=== PATIENT | female | born 1935 | race Caucasian/White ===

== ENCOUNTER 2021-02-21 10:33 | Outpatient (CLI) | payer MEDICARE, BC, SELFPAY ==
--- NOTE | 2021-02-21 10:41 | CT_ITS ---
WS: [id number] CT ABDOMEN WITHOUT CONTRAST HISTORY: SERUM LIPASE ELEVATED Contiguous single phase 5 mm axial imaging performed to the abdomen. Oral contrast has not been provi ded. Coronal and sagittal reformats are submitted. All CT scans at [facility] use at least on e of these dose optimization techniques: automated exposure control; mA and/or kV adjustment per anthony ent size (includes targeted exams where dose is matched to clinical indication); or iterative reconst ruction. CONTRAST: None DLP: 647.97 mGycm COMPARISON: None available. Lower thorax: Dependent changes at the lung bases bilaterally. Heart size is moderately enlarged. No effusion. Small hiatal hernia. Liver: Normal. No intrahepatic dilatation. Gallbladder: Mixed density within the gallbladder. Suspect stones, mass or sludge. No bile duct dilat ation. Pancreas: Normal. Spleen: Normal. Adrenals: Normal. Right kidney: Normal. Left kidney: Mild atrophy of the LEFT kidney. Mild cortical thinning with no obstruction. Aorta: Mild atherosclerosis. No aneurysm. GI tract: As visualized within the abdomen no obstruction or acute inflammatory process. No wall thic kening. No adenopathy or free fluid. Abdominal wall: Diffuse soft tissue anasarca. No hernia. Visualized osseous structures: Increase in the lumbar lordosis. Moderate spondylitic changes and corbin te LEFT curvature of the lumbar spine with asymmetric disc space narrowing at L4-5. CT/CT abdomen wo con [id number] IMPRESSION: 1. Abnormal density within the gallbladder. Suspect stones, mass or sludge. Re commend follow-up RIGHT upper quadrant ultrasound to further evaluate the gallb ladder and to evaluate for additional pathology. 2. Mild soft tissue anasarca. 3. Mild atrophy LEFT kidney.
== END 2021-02-21 10:34 | disposition home or self-care (01) ==
PROVIDERS: Visit Provider Nurse Practitioner Family
DX: R74.8 Abnormal levels of other serum enzymes (principal); N26.1 Atrophy of kidney (terminal); R60.1 Generalized edema
CPT/HCPCS: 74150

== ENCOUNTER 2021-03-25 08:11 | Outpatient (CLI) | payer MEDICARE, BC, SELFPAY ==
--- NOTE | 2021-03-25 | US_ITS ---
WS: [id number] Complete ABDOMINAL ULTRASOUND HISTORY: LEFT LOWER QUAD PAIN COMPARISON: None available. Liver: 13.0 cm in length. Liver is normal size and echogenicity with no mass or intrahepatic dilatati on. Gallbladder: Normally distended gallbladder. Numerous mobile stones with shadowing within the gallbla dder lumen. No pericholecystic fluid or gallbladder wall thickening. Gallbladder wall thickness: 0.2 cm. Pancreas: Normal size and echogenicity. CBD: 0.7 cm. Right kidney: 9.0 cm x 3.5 cm x 4.6 cm. No mass, cortical thickening or hydronephrosis. Left kidney: 9.7 cm x 3.7 cm x 4.0 cm. No mass, cortical thickening or hydronephrosis. Spleen: Normal size and echogenicity. Abdominal aorta and IVC are within normal limits. No ascites. No abnormality in the LEFT lower quadrant and area of pain. US/US abdomen complete* [id number] IMPRESSION: 1. Cholelithiasis without acute cholecystitis. 2. The remaining ultrasound is negative.
== END 2021-03-25 08:12 | disposition home or self-care (01) ==
PROVIDERS: PCP Nurse Practitioner Family; Visit Provider Nurse Practitioner Family
DX: R10.32 Left lower quadrant pain (principal); K80.20 Calculus of gallbladder without cholecystitis without obstruction
CPT/HCPCS: 76700

== ENCOUNTER 2021-04-05 14:04 | Outpatient (CLI) | payer MEDICARE, BC, SELFPAY ==
--- NOTE | 2021-04-05 14:10 | USCV_ITS ---
Irina Frankel Age: 85 Gender: F : 1935 Exam Date: 04/05/2021 14:29 Ordering Phys: Jacinta Tinoco NP Technologist: Arlene Basilio Exam Location: [facility] [place] Indication: CARDIOMEGALY BP: 126 / 76 HR: 72 Rhythm: Sinus Technical Quality: Technically difficult study MEASUREMENTS (Male / Female) Normal Values 2D ECHO LV Diastolic Diameter PLAX 3.6 cm 4.2 - 5.9 / 3.9 - 5.3 cm LV Systolic Diameter PLAX 2.5 cm IVS Diastolic Thickness 1.3 cm 0.6 - 1.0 / 0.6 - 0.9 cm IVS Systolic Thickness 1.8 cm LVPW Diastolic Thickness 1.3 cm 0.6 - 1.0 / 0.6 - 0.9 cm LVPW Systolic Thickness 2.0 cm LVOT Diameter 2.0 cm LV Ejection Fraction 2D Teich 58.3 % LV Ejection Fraction MOD 2C 59.3 % LV Ejection Fraction 2C AL 59.9 % LA Diameter 2.9 cm LA Width 3.0 cm LA Height 4.6 cm RA Width 4.0 cm RA Height 3.9 cm Aorta at Sinotubular Diameter 1.9 cm M-MODE Aortic Annulus Diameter 2.9 cm LA Ao Ratio MM 1.0 MV E Point Septal Separation 0.6 cm DOPPLER AV Peak Velocity 211.0 cm/s LVOT Peak Velocity 111.3 cm/s AV Area Cont Eq vti 1.8 cm squared AV Area Cont Eq pk 1.7 cm squared MV Peak Velocity 136.0 cm/s MV Area PHT 3.1 cm squared Mitral E to A Ratio 0.9 MV E' Velocity 66.0 cm/s Mitral E to MV E' Ratio 11.3 Mitral E to LV E' Lateral Ratio 13.1 Mitral E to LV E' Septal Ratio 10.0 TR Peak Velocity 212.9 cm/s TR Peak Gradient 18.1 mmHg TR Mean Velocity 150.8 cm/s TR Mean Gradient 9.9 mmHg TR Velocity Time Integral 52.8 cm TV Peak E Velocity 56.0 cm/s Right Atrial Pressure 3.0 mmHg Pulmonary Artery Systolic Pressu 21.1 mmHg PV Peak Velocity 93.0 cm/s RV Acceleration Time 0.1 s RV Ejection Time 0.3 s RV AcT/ET 0.2 FINDINGS Left Ventricle Normal left ventricular cavity size. Normal left ventricular systolic function. No regional wall motion abnormalities. Left ventricular ejection fraction is estimated at 60 %. Grade I/IV diastolic dysfunction (abnormal relaxation filling pattern), normal to mildly elevated filling pressures. Right Ventricle The right ventricle is normal in size and function. Right Atrium The right atrium is normal in size. Left Atrium The left atrium is normal in size. Mitral Valve Moderately thickened mitral valve. Moderate mitral annular calcification. No mitral valve stenosis. Mild mitral valve regurgitation. Aortic Valve Severe aortic valve calcification. Moderate aortic valve stenosis, mean gradient 9.6 mmHg, CHE 1.8 cm squared. No aortic valve regurgitation. Tricuspid Valve Structurally normal tricuspid valve without significant stenosis or regurgitation. Pulmonary artery systolic pressure is normal. Pulmonic Valve Structurally normal pulmonic valve without significant stenosis. There is no pulmonic regurgitation. Pericardium Normal pericardium without effusion. Aorta Normal ascending aorta dimension. CONCLUSIONS 1-Normal left ventricular cavity size. Normal left ventricular systolic function. No regional wall motion abnormalities. Left ventricular ejection fraction is estimated at 60 %. Grade I/IV diastolic dysfunction (abnormal relaxation filling pattern), normal to mildly elevated filling pressures. 2-Severe aortic valve calcification. Moderate aortic valve stenosis, mean gradient 9.6 mmHg, CHE 1.8 cm squared. No aortic valve regurgitation. 3-Moderately thickened mitral valve. Moderate mitral annular calcification. No mitral valve stenosis. Mild mitral valve regurgitation. 4-There is no pericardial effusion. 5-Pulmonary artery systolic pressure is within normal limits. 6-Right atrial pressure is around 5 mm of mercury. 7-There are no prior echocardiogram studies to compare. Holden Casiano MD (Electronically Signed) Final Date: 05 April 2021 21:02 S
== END 2021-04-05 14:05 | disposition home or self-care (01) ==
LOC: RAD 14:08
PROVIDERS: PCP Nurse Practitioner Family; Visit Provider Nurse Practitioner Family
DX: I70.0 Atherosclerosis of aorta (principal); I08.0 Rheumatic disorders of both mitral and aortic valves
CPT/HCPCS: 93306

== ENCOUNTER 2021-05-29 13:38 | Outpatient (CLI) | payer MEDICARE, BC, SELFPAY ==
--- NOTE | 2021-05-29 13:46 | MM_ITS ---
WS: [id number] BILATERAL DIGITAL SCREENING MAMMOGRAPHY WITH CAD CLINICAL INFORMATION: SCREENING HISTORY: Screening mammogram. No current complaints. COMPARISON: June 07, 2020 TECHNIQUE: Bilateral CC and MLO views. FINDINGS: Scattered fibroglandular densities bilaterally. Punctate and dystrophic calcifications. Secretory ko cifications. Stable incidental intramammary lymph node left breast. Vascular calcification. No suspic ious focal mass, asymmetry, calcifications, or architectural distortion. No evidence of malignancy. MM/[place] [id number] IMPRESSION: BI-RADS: 2-Benign FOLLOW UP: 1 Year Follow-up Recommend return to annual screening mammography.
--- NOTE | 2021-05-29 14:38 | XR_ITS ---
WS: [id number] DEXA (DUAL ENERGY X-RAY ABSORPTIOMETRY) Bone mineral density was performed using a [employer] machine. HISTORY: AGE-RELATED OSTEOPOROSIS WITHOUT CURRENT PATHOLOGICAL FRACTURE COMPARISON: None available. Lumbar spine BMD (L1-L4): 1.139 g/cm2 T score: -0.3 Z score: 1.4 Total hip BMD: Left: 0.797 g/cm2. T score: -1.7 Z score: 0.5 Right: 0.792 g/cm2. T score: -1.7 Z score: 0.4 10 year probability of a major osteoporotic fracture is 18%. XR/XR DEXA axial skeleton* [id number] IMPRESSION: OSTEOPENIA based upon the WHO classification for females.
== END 2021-05-29 13:39 | disposition home or self-care (01) ==
LOC: RADSHAW 13:43
PROVIDERS: PCP Nurse Practitioner Family; Visit Provider Nurse Practitioner Family
DX: Z12.31 Encounter for screening mammogram for malignant neoplasm of breast (principal); M81.0 Age-related osteoporosis without current pathological fracture; M85.80 Other specified disorders of bone density and structure, unspecified site
CPT/HCPCS: 77067; 77080

== ENCOUNTER 2021-10-12 12:09 | Outpatient (CLI) | payer MEDICARE, BC, SELFPAY ==
--- NOTE | 2021-10-12 12:33 | US_ITS ---
WS: [id number] ULTRASOUND SOFT TISSUES LEFT suprapubic region. HISTORY: SUPRAPUBIC MASS COMPARISON: None available. TECHNIQUE: 2-D and color Doppler imaging is submitted. There is a hypoechoic elongated mass in the region of the pain in the LEFT suprapubic region. There i s no increased vascularity and also no peristalsis. This is closely associated to the inguinal region . This area measures 4.1 cm in length by 3.4 x 1.3 cm. US/US soft tissue/extremity [id number] IMPRESSION: Suprapubic/LEFT inguinal mass measures 4.1 x 3.4 x 1.3 cm. There is no peristal sis. This may be an incarcerated hernia or omental fat extending into the ingui nal canal. Consider follow-up evaluation by CT to exclude incarcerated hernia a nd possible ischemic changes. No ischemic changes are identified at this time b y ultrasound.CT will better define this area and help with the etiology of this mass.
== END 2021-10-12 12:10 | disposition home or self-care (01) ==
LOC: RAD 12:13
PROVIDERS: PCP Nurse Practitioner Family; Visit Provider Nurse Practitioner Family
DX: R19.09 Other intra-abdominal and pelvic swelling, mass and lump (principal)
CPT/HCPCS: 76882

== ENCOUNTER 2021-11-23 09:41 | Outpatient (CLI) | payer MEDICARE, BC, SELFPAY ==
--- NOTE | 2021-11-23 09:55 | CT_ITS ---
WS: [id number] CT ABDOMEN PELVIS TECHNIQUE: Noncontrast CT of the abdomen and pelvis with coronal and sagittal reformatted images. CLINICAL INFORMATION: SUPRAPUBIC MASS COMPARISON: CT February 21, 2021 DLP: 962.[address] scans at [facility] use at least one of these dose optimization techniques: automated e xposure control; mA and/or kV adjustment per patient size (includes targeted exams where dose is matc hed to clinical indication); or iterative reconstruction. FINDINGS: Noncontrast liver is normal. Moderate esophageal hiatal hernia. Lung bases are well aerated. Normal n oncontrast spleen. Adrenal glands are normal. Noncontrast pancreas is normal. Cholelithiasis. No gall bladder wall thickening or pericholecystic fluid. No hydronephrosis in either kidney. Pelvic phleboliths. Normal caliber abdominal aorta. Fat-containin g LEFT inguinal hernia. No herniated bowel. Sigmoid diverticulosis. No evidence of acute diverticulit is. No evidence of high-grade small or large bowel obstruction. 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 Disc space narrowing worse L4-L5 and L5-S1. Chronic anterior wedging in the l ower thoracic spine. CT/CT abdomen pelvis wo con [id number] IMPRESSION: 1. Cholelithiasis. No gallbladder wall thickening or pericholecystic fluid. 2. Moderate esophageal hiatal hernia. 3. Normal caliber abdominal aorta. 4. Fat-containing LEFT inguinal hernia. No herniated bowel. 5. Sigmoid diverticulosis. No evidence of acute diverticulitis. 6. 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
== END 2021-11-23 09:42 | disposition home or self-care (01) ==
LOC: RAD 09:43
PROVIDERS: PCP Nurse Practitioner Family; Visit Provider Nurse Practitioner Family
DX: R19.09 Other intra-abdominal and pelvic swelling, mass and lump (principal); K80.20 Calculus of gallbladder without cholecystitis without obstruction; K44.9 Diaphragmatic hernia without obstruction or gangrene; K40.90 Unilateral inguinal hernia, without obstruction or gangrene, not specified as recurrent; K57.30 Diverticulosis of large intestine without perforation or abscess without bleeding
CPT/HCPCS: 74176

== ENCOUNTER 2021-12-06 19:04 | Emergency (ER) | payer MEDICARE, BC, SELFPAY ==
[2021-12-06 19:46] VITALS: BP 161/65; PULSE 84; RESP 12; TEMP 36.6; O2SAT 97; BMI 30.2
--- NOTE | 2021-12-06 20:57 | XRR_ITS ---
PROCEDURE INFORMATION: Exam: XR Chest Exam date and time: 12/06/2021 9:15 PM Age: 86 years old Clinical indication: Shortness of breath and other: Weakness TECHNIQUE: Imaging protocol: Radiologic exam of the chest. Views: 1 view. COMPARISON: CT abdomen pelvis con [id number] 11/23/2021 10:11 AM FINDINGS: Lungs: Unremarkable. No consolidation. Pleural spaces: Unremarkable. No pleural effusion. No pneumothorax. Heart/Mediastinum: Unremarkable. No cardiomegaly. Bones/joints: Unremarkable. XR/XR chest 1V portable [id number] IMPRESSION: Unremarkable
--- NOTE | 2021-12-06 20:57 | ECG_ITS ---
[facility] Test Date: 2021-12-06 Pat Name: Irina Frankel Department: Room: Gender: Female Customer Resolution Specialist: : 1935 Requested By: Juan Epstein Order Number: [id number] Justine MD: Cas Rosario M.D. Measurements Intervals [place] Rate: 72 P: 69 CT: 174 QRS: 20 QRSD: 100 T: 47 QT: 378 QTc: 414 Interpretive Statements SINUS RHYTHM WITH OCCASIONAL ECTOPIC PREMATURE COMPLEXES No previous ECG available for comparison Electronically Signed On 12-07-2021 22:31:00 CDT by Cas Rosario M.D. [id number]
--- NOTE | 2021-12-06 21:15 | W.ED.GENADLT ---
HPI - General Adult General: Chief complaint: General Medical Stated complaint: Low BP/high pulse Time Seen by Provider: 12/06/21 20:56 Source: patient Mode of arrival: ambulatory Limitations: no limitations History of Present Illness: 86-year-old female states she is just started acetazolamide this week and states that since then she has been having tingling feels like she been having reactions to her medicine. States today her blood pressure and heart rate was irregular. She denies any chest pain denies any shortness of breath denies any worsening improving factors patient's vital signs here are normal at this time. She denies any palpitations currently. Associated symptoms: Reports palpitations; Deny dyspnea, headache(s), nausea, rash or vomiting Review of Systems Const: Denies: fever(s), chills, body aches or change in appetite Eyes: Denies: blurry vision or eye discomfort ENMT: Denies: throat pain or dental pain Card: Reports: palpitations Resp: Denies: dyspnea GI: Denies: abdominal pain, nausea, vomiting or diarrhea : Denies: dysuria Musc: Denies: neck pain or back pain Skin/Breast: Denies: rash Neuro: Denies: headache(s) Psych: Denies: depression Diogenes/Lymph: Denies: easy bruising All/Imm: Denies: urticaria PFSH ED PFSH: Medical History Bilateral carpal tunnel syndrome Bilateral leg edema CHF (congestive heart failure) Colitis Hiatal hernia HTN (hypertension) Thyroid disease neuropathy Vertigo Surgical History History of bilateral carpal tunnel release History of bilateral knee replacement Family History Father Stroke Heart attack Mother CHF (congestive heart failure) Brother Cancer lymphoma Sister Breast cancer Social History Smoking and tobacco status: never smoked Alcohol intake: never Physical Exam Const: COMMON NORMALS: no acute distress, patient oriented x3 and healthy appearing HENMT: COMMON NORMALS: normocephalic and atraumatic HEAD & SCALP: normocephalic and atraumatic Eye: COMMON NORMALS: Equal, round and reactive pupils present and EOMs intact bilaterally PUPIL: Yes Equal, round and reactive pupils present Neck/C-Spine: COMMON NORMALS: full ROM and supple Chest: COMMONS NORMALS: normal inspection of the chest and normal palpation of entire chest wall Resp: COMMON NORMALS: normal respiratory effort, No retractions, No use of accessory muscles and clear to auscultation bilaterally AUSCULTATION: clear to auscultation bilaterally Cardio: COMMON NORMALS: regular rate, regular rhythm and No murmurs present (Cardio) RATE: regular rate RHYTHM: regular rhythm GI: COMMON NORMALS: Normal to inspection, nondistended, normoactive bowel sounds present, Soft to palpation, non-tender and no masses PALPATION: Yes Soft to palpation Extremity: COMMON NORMALS: normal to inspection and full ROM Neuro: COMMON NORMALS: patient oriented x3, moves all extremities and no focal motor deficits Psych: COMMON NORMALS: mental status grossly normal, Normal thought process present and cooperative THOUGHT PROCESS: Normal thought process present Skin: COMMON NORMALS: no rashes or lesions noted and no wounds GENERAL SKIN EXAM: no rashes or lesions noted Course Vital Signs: Vital signs: Vital Signs Temperature 98 F 12/06/21 19:46 Pulse Rate 81 12/07/21 00:30 Respiratory Rate 22 H 12/07/21 00:30 Blood Pressure 142/58 12/07/21 00:30 Pulse Oximetry 96 12/07/21 00:30 [facility] - General Adult Medical Decision Making Patient presents here with palpitations at home her heart rate here has been normal blood work is all normal she is to stop her acetazolamide follow-up with her PCP and return if worsening she understands agrees to plan. Lab Data : 12/06/21 21:30 12/06/21 23:21 Radiology Impressions Chest X-Ray 12/06/21 20:57 IMPRESSION: Unremarkable Laboratory Results WBC 10.6 10^3/uL (4.0-10.0) H 12/06/21 21:30 RBC 4.63 10^6/uL (4.1-5.3) 12/06/21 21:30 Hgb 14.4 g/dL (11.5-15.3) 12/06/21 21:30 Hct 41.3 % (37.0-47.0) 12/06/21 21:30 MCV 89.2 fl (81-99) 12/06/21 21: MCH 31.1 pg (28.0-34.0) 12/06/21 21: MCHC 34.9 g/dL (30.0-36.0) 12/06/21 21: RDW 13.6 % (12.1-15.1) 12/06/21 21: Plt Count 181 10^3/cmm (130-400) 12/06/21 21: MPV 11.9 fL (7.4-10.4) H 12/06/21 21: Neut % (Auto) 59.4 % 12/06/21 21: Lymph % (Auto) 22.4 % 12/06/21: [place] % (Auto) 8.2 % 12/06/21: Eos % (Auto) 8.8 % 12/06/21: Baso % (Auto) 0.7 % 12/06/21: Neut # (Auto) 6.28 10^3/uL (1.8-7.7) 12/06/21 21: Lymph # (Auto) 2.4 10^3/uL (0.8-4.8) 12/06/21: [place] # (Auto) 0.9 10^3/uL (0.2-0.9) 12/06/21 21: Eos # (Auto) 0.9 10^3/uL (0.0-0.8) H 12/06/21: Baso # (Auto) 0.1 10^3/uL (0.0-0.1) 12/06/21: Nucleated RBC % (auto) 0 % 12/06/21: Nucleated RBCs # 0.0 /100WBC 12/06/21: Sodium 134 mmol/L (136-145) L 12/06/21 23:21 Potassium 4.0 mmol/L (3.5-5.1) 12/06/21 23: Chloride 104 mmol/L (98-107) 12/06/21 23:21 Carbon Dioxide 16 mmol/L (22-29) L 12/06/21 23: Anion Gap 18.0 (5-19) 12/06/21 23:21 BUN 27 mg/dL (8-23) H 12/06/21 23:21 Creatinine 1.9 mg/dL (0.5-0.9) H 12/06/21 23:21 GFR Calculation Not Reportable 12/06/21 23:21 Glucose 89 mg/dL (65-115) 12/06/21 23:21 Calculated Osmolality 283 mOsm/kg (285-295) L 12/06/21 23:21 Lactate 0.6 mmol/L (0.5-2.2) 12/06/21 23:21 Calcium 10.0 mg/dL (8.5-10.5) 12/06/21 23:21 Total Bilirubin 0.7 mg/dL (0.15-1.2) 12/06/21 23:21 AST 19 U/L (0-32) 12/06/21 23:21 ALT 15 U/L (0-33) 12/06/21 23:21 Alkaline Phosphatase 135 IU/L (35-105) H 12/06/21 23:21 Total Protein 7.3 g/dL (6.6-8.7) 12/06/21 23:21 Albumin 3.9 g/dL (3.5-5.2) 12/06/21 23:21 Globulin 3.4 g/dL (1.3-4.6) 12/06/21 23:21 Lipase 43 U/L (13-60) 12/06/21 23:21 Urine Color Yellow (Yellow) 12/06/21 21:45 Urine Appearance Clear (CLEAR) 12/06/21 21:45 Urine pH 6 (5-7) 12/06/21 21:45 Ur Specific [place] 1.015 (1.005-1.030) 12/06/21 21:45 Urine Protein Neg (Negative) 12/06/21 21:45 Urine Glucose (UA) Norm (Normal) 12/06/21 21:45 Urine Ketones Negative (Negative) 12/06/21 21:45 Urine Blood Neg (Negative) 12/06/21 21:45 Urine Nitrate Negative (Negative) 12/06/21 21:45 Urine Bilirubin Neg (Negative) 12/06/21 21:45 Urine Urobilinogen Norm mg/dL (Negative) 12/06/21 21:45 Ur Leukocyte Esterase Negative (Negative) 12/06/21 21:45 EKG Data EKG 1: I personally reviewed and interpreted this EKG as follows: EKG interpretation date: 12/06/21 EKG interpretation time: 20:08 Interpretation: nsr hr [address] or t wave abnormalities qrs 97 qtc 402 Computer generated interpretation: Chest X-Ray 12/06/21 20:57 IMPRESSION: Unremarkable Discharge Plan Discharge Patient Disposition: Home Clinical Impression: Palpitations Condition: Stable Prescriptions: No Action aspirin [Benjamin Chewable Aspirin] 81 mg tablet,chewable 81 mg PO DAILY 0RF losartan 100 mg tablet 100 mg PO DAILY 0RF levothyroxine 88 mcg capsule 88 mcg PO DAILY 0RF diltiazem HCl 360 mg capsule,extended release 24hr 360 mg PO DAILY 0RF omeprazole 20 mg capsule,delayed release(DR/EC) 20 mg PO DAILY 0RF acetazolamide 250 mg tablet 250 mg PO BID 0RF spironolactone 25 mg tablet 25 mg PO DAILY 0RF Tylenol 325 mg Capsule 325 mg PO Q6H PRN (Reason: Pain) 0RF Align 4 mg Capsule 4 mg PO DAILY 0RF Discharge Orders: Discharge ED (Routine); Ordered 12/07/21 Ordered By: Juan Epstein Referrals: Jacinta Tinoco NP [Primary Care Provider] - 1-3 days Discharge Diet: Advance as tolerated Discharge Activity: Resume usual activity Patient Instructions: Heart Palpitations (ED) Coding Level of Care Code ED Rental Sales Associate for Chg Fwd Exam Comprehensive
[2021-12-06 21:55] LABS: Add Urine Microscopic? NO; Charge for UA Resulting for Rev
[2021-12-06 22:00] LABS: Bilirubin Urine Neg (Negative); Blood Urine Neg (Negative); Glucose Urine UA Norm (Normal); Ketones Urine Negative (Negative); Leukocyte Esterase Urine Negative (Negative); Nitrate Urine Negative (Negative); Protein Urine Neg (Negative); Specific Gravity, Urine 1.015 (1.005-1.030); Urine Appearance Clear (CLEAR); Urine Color Yellow (Yellow); Urobilinogen Urine Norm (Negative); pH Urine 6 (5-7)
[2021-12-06 22:05] LABS: Basophils # 0.1 10^3/uL (0.0-0.1); Basophils % 0.7 %; Eosinophils # 0.9 10^3/uL (0.0-0.8); Eosinophils % 8.8 %; Hematocrit 41.3 % (37.0-47.0); Hemoglobin 14.4 g/dL (11.5-15.3); Lymphocytes # 2.4 10^3/uL (0.8-4.8); Lymphocytes % 22.4 %; Mean Corpuscular HGB Conc 34.9 g/dL (30.0-36.0); Mean Corpuscular Hemoglobin 31.1 pg (28.0-34.0); Mean Corpuscular Volume 89.2 fl (81-99); Mean Platelet Volume 11.9 fL (7.4-10.4); Monocytes # 0.9 10^3/uL (0.2-0.9); Monocytes % 8.2 %; Neutrophils # 6.28 10^3/uL (1.8-7.7); Neutrophils % 59.4 %; Nucleated Red Blood Cells % 0 %; Platelet Count 181 10^3/cmm (130-400); Red Blood Count 4.63 10^6/uL (4.1-5.3); Red Cell Distribution Width 13.6 % (12.1-15.1); White Blood Count 10.6 10^3/uL (4.0-10.0)
[2021-12-06 22:06] LABS: Slide Review Slide Review Perform
[2021-12-06 22:51] VITALS: BP 177/77; PULSE 81; O2SAT 96
[2021-12-06 23:47] VITALS: BP 159/90; PULSE 79; RESP 14; O2SAT 97
[2021-12-07 00:30] VITALS: BP 142/58; PULSE 81; RESP 22; O2SAT 96
[2021-12-07 00:30] LABS: Lactate (Lactic Acid level) 0.6 mmol/L (0.5-2.2)
[2021-12-07 00:31] LABS: Alanine Aminotransferase 15 U/L (0-33); Albumin Level 3.9 g/dL (3.5-5.2); Alkaline Phosphatase 135 IU/L (35-105); Blood Urea Nitrogen 27 mg/dL (8-23); Carbon Dioxide 16 mmol/L (22-29); Chloride 104 mmol/L (98-107); Globulin 3.4 g/dL (1.3-4.6); Glucose 89 mg/dL (65-115); Lipase 43 U/L (13-60); Osmolality Calculated 283 mOsm/kg (285-295); Sodium 134 mmol/L (136-145); Total Bilirubin 0.7 mg/dL (0.15-1.2); Total Protein 7.3 g/dL (6.6-8.7)
[2021-12-07 00:32] LABS: Aspartate Amino Transferase 19 U/L (0-32)
[2021-12-07 00:46] VITALS: BP 142/58; PULSE 81; RESP 22; O2SAT 96
== END 2021-12-07 00:51 | disposition home or self-care (01) ==
PROVIDERS: Emergency Medicine; Emergency Provider Emergency Medicine; PCP Nurse Practitioner Family
DX: R00.2 Palpitations (principal); Z79.82 Long term (current) use of aspirin; I11.0 Hypertensive heart disease with heart failure; I50.9 Heart failure, unspecified
CPT/HCPCS: 36415; 71045; 80053; 81003; 83605; 83690; 85025; 93005; 99283

== ENCOUNTER → 2022-05-14 12:50 | Outpatient (BNVA) | payer MEDICARE, BC, SELFPAY | PROVIDERS: PCP Nurse Practitioner Family; Visit Provider Internal Medicine | DX: I35.0 Nonrheumatic aortic (valve) stenosis (principal); I11.0 Hypertensive heart disease with heart failure; I50.30 Unspecified diastolic (congestive) heart failure | CPT/HCPCS: 99214 ==

== ENCOUNTER 2022-06-01 06:00 | Outpatient (CLI) | payer MEDICARE, BC, SELFPAY ==
--- NOTE | 2022-06-01 06:15 | USCV_ITS ---
Irina Frankel Age: 86 Gender: F : 1935 Exam Date: 06/01/2022 06:13 Ordering Phys: Cas Rosario M.D ([email or web address]) Technologist: Elda Willis [place] [facility] [place]: Known and SOB BP: 142 / 76 HR: 66 Rhythm: Sinus Technical Quality: Adequate MEASUREMENTS (Male / Female) Normal Values 2D ECHO LV Diastolic Diameter PLAX 3.7 cm 4.2 - 5.9 / 3.9 - 5.3 cm LV Systolic Diameter PLAX 3.4 cm LV Chamber Size 3.2 cm IVS Diastolic Thickness 1.1 cm 0.6 - 1.0 / 0.6 - 0.9 cm IVS Systolic Thickness 1.4 cm LVPW Diastolic Thickness 1.4 cm 0.6 - 1.0 / 0.6 - 0.9 cm LVPW Systolic Thickness 1.5 cm RV Chamber Size 3.2 cm LVOT Diameter 2.0 cm LV Ejection Fraction 2D Teich 8.6 % LV Ejection Fraction MOD 2C 69.6 % LV Ejection Fraction 2C AL 71.1 % LA Diameter 3.7 cm LA Width 3.5 cm LA Height 4.3 cm RA Width 3.3 cm RA Height 4.3 cm Aorta at Sinotubular Diameter 2.6 cm IVC Diameter 1.7 cm M-MODE Aortic Annulus Diameter 3.1 cm LA Ao Ratio MM 1.4 MV E Point Septal Separation 0.4 cm DOPPLER AV Peak Velocity 194.0 cm/s LVOT Peak Velocity 111.0 cm/s AV Area Cont Eq vti 1.8 cm squared AV Area Cont Eq pk 1.8 cm squared MV Area PHT 3.1 cm squared Mitral E to A Ratio 1.2 MV E' Velocity 73.0 cm/s Mitral E to MV E' Ratio 13.1 Mitral E to LV E' Lateral Ratio 13.5 Mitral E to LV E' Septal Ratio 12.9 TR Peak Velocity 310.9 cm/s TR Peak Gradient 38.7 mmHg TR Mean Velocity 253.5 cm/s TR Mean Gradient 28.3 mmHg TR Velocity Time Integral 103.9 cm TV Peak E Velocity 77.0 cm/s Right Atrial Pressure 3.0 mmHg Pulmonary Artery Systolic Pressu 41.7 mmHg RV Acceleration Time 0.2 s RV Ejection Time 0.3 s RV AcT/ET 0.5 FINDINGS Left Ventricle Left ventricle is normal is size. LV systolic function is normal with EF of 55-60%. No regional wall motion abnormalities. Right Ventricle Normal in size and function Right Atrium Normal in size Left Atrium Normal in size Mitral Valve Moderate mitral annular calcification. Mild mitral regurgitation. Aortic Valve Aortic valve is thickened. Mild aortic stenosis with aortic valve area of 1.77cm2 with mean gradient across the aortic valve of 8mmHg. Tricuspid Valve Mild tricuspid regurgitation. Insufficient TR jet to calculate RVSP Pulmonic Valve Not well visualized. Pericardium Normal Aorta Normal in size IVC Appears to be normal CONCLUSIONS LV systolic function is normal with EF of 55-60% Mild aortic stenosis. Mild tricuspid regurgitation. Compared to prior echocardiogram from 2020, no signfiicant changes are seen. Cas Rosario MD (Electronically Signed) Final Date: 11 June 2022 18:37 S
== END 2022-06-01 06:01 | disposition home or self-care (01) ==
PROVIDERS: PCP Nurse Practitioner Family; Visit Provider Internal Medicine
DX: R06.02 Shortness of breath (principal)
CPT/HCPCS: 93306

== ENCOUNTER 2022-08-07 10:24 | Outpatient (CLI) | payer MEDICARE, BC, SELFPAY ==
--- NOTE | 2022-08-07 10:46 | MM_ITS ---
WS: [id number] Exam: [id number] Date/Time of Exam: 08/07/2022 10:46 AM Reason For Exam: SCREENING VIEWS: MLO and CC views both breasts. 3D digital tomosynthesis is also included in this exam. Comparison made with prior exam of 05/31/2016, 06/03/2017, 06/04/2018, 06/05/2019. 06/07/2020, 2020.. Findings: There was no sign of mass, architectural distortion or suspicious calcification in either breast. Sta ble appearing nodular densities in both breasts.Scattered fibroglandular densities MM/[place] [id number] Impression: BI-RADS: 2-Benign FOLLOW-UP: 1 Year Follow-up This mammogram was also analyzed by the Computer Aided Detection System R2 Imag e Network And Threat Support Specialist.
== END 2022-08-07 10:25 | disposition home or self-care (01) ==
LOC: RAD 10:28
PROVIDERS: PCP Nurse Practitioner Family; Visit Provider Nurse Practitioner Family
DX: Z12.31 Encounter for screening mammogram for malignant neoplasm of breast (principal)
CPT/HCPCS: 77063; 77067

== ENCOUNTER 2023-05-22 09:08 | Outpatient (CLI) | payer MEDICARE, BC, SELFPAY ==
--- NOTE | 2023-05-22 09:45 | USCV_ITS ---
Irina Frankel Age: 87 Gender: F : 1935 Exam Date: 05/22/2023 09:41 Ordering Phys: Cas Rosario M.D ([email or web address]) Technologist: CT Exam Location: [facility] [place]ication: ao stenosis BP: 140 / 64 HR: 71 Rhythm: Sinus Technical Quality: Adequate MEASUREMENTS (Male / Female) Normal Values 2D ECHO LV Chamber Size 4.1 cm RV Chamber Size 3.3 cm LVOT Diameter 2.0 cm LV Ejection Fraction MOD 2C 53.0 % LV Ejection Fraction 2C AL 52.8 % LA Diameter 4.3 cm LA Width 4.2 cm LA Height 5.8 cm RA Width 3.8 cm RA Height 4.8 cm Aorta at Sinotubular Diameter 2.1 cm IVC Diameter 2.0 cm M-MODE Aortic Annulus Diameter 3.3 cm LA Ao Ratio MM 1.5 MV E Point Septal Separation 1.5 cm DOPPLER AV Peak Velocity 239.0 cm/s LVOT Peak Velocity 137.0 cm/s AV Area Cont Eq vti 1.7 cm squared AV Area Cont Eq pk 1.9 cm squared MV E' Velocity 10.0 cm/s TR Peak Velocity 309.8 cm/s TR Peak Gradient 38.4 mmHg TR Mean Velocity 223.9 cm/s TR Mean Gradient 23.5 mmHg TR Velocity Time Integral 85.8 cm TV Peak E Velocity 90.0 cm/s Right Atrial Pressure 3.0 mmHg Pulmonary Artery Systolic Pressu 41.4 mmHg PV Peak Velocity 131.0 cm/s FINDINGS Left Ventricle Left ventricle is normal in size. LV systolic function is normal with EF 55-60%. No regional wall motion abnormalities are seen. Right Ventricle Normal in size and function Right Atrium Normal in size Left Atrium Normal in size Mitral Valve Moderate to severe mitral annular calcification. Mild to moderate mitral regurgitation. Aortic Valve Aortic valve is thickened. Mild aortic stenosis with aortic valve area of 1.7 cm squared and mean gradient of 11 mmHg. Tricuspid Valve Mild tricuspid regurgitation. RVSP is 35 to 40 mmHg. This is consistent with mild pulmonary hypertension. Pulmonic Valve Not well visualized Pericardium Normal Aorta Normal in size IVC Appears to be normal CONCLUSIONS LV systolic function is normal with EF of 55-60%. Mild to moderate mitral regurgitation Mild aortic stenosis Mild tricuspid regurgitation Mild pulmonary hypertension Compared to prior echocardiogram from 05/2022, no significant changes are seen Cas Rosario MD (Electronically Signed) Final Date: 22 May 2023 13:41 S
== END 2023-05-22 09:09 | disposition home or self-care (01) ==
LOC: RAD 09:08
PROVIDERS: PCP Nurse Practitioner Family; Visit Provider Internal Medicine
DX: I08.3 Combined rheumatic disorders of mitral, aortic and tricuspid valves (principal); I10 Essential (primary) hypertension; I50.30 Unspecified diastolic (congestive) heart failure
CPT/HCPCS: 93306

== ENCOUNTER → 2023-06-13 14:16 | Outpatient (BNVA) | payer MEDICARE, BC, SELFPAY | PROVIDERS: PCP Nurse Practitioner Family; Visit Provider Internal Medicine | DX: I35.0 Nonrheumatic aortic (valve) stenosis (principal); I11.0 Hypertensive heart disease with heart failure; I50.30 Unspecified diastolic (congestive) heart failure; Z79.82 Long term (current) use of aspirin | CPT/HCPCS: 99214 ==

== ENCOUNTER 2024-01-07 08:53 | Outpatient (CLI) | payer MEDICARE, BC, SELFPAY ==
--- NOTE | 2024-01-07 09:03 | MM_ITS ---
WS: [id number] BILATERAL SCREENING DIGITAL TOMOSYNTHESIS MAMMOGRAM WITH CAD HISTORY: SCREENING COMPARISON: 08/07/2022, 05/29/2021 Bilateral CC and MLO views with tomosynthesis and synthetic mammography submitted. Computer aided det ection analyzed. Breast composition: There are scattered areas of fibroglandular density. No suspicious masses, microc alcifications or architectural distortion. Benign calcifications in each breast. MM/[place] [id number] IMPRESSION: BI-RADS: 2-Benign FOLLOW UP: 1 Year Follow-up
== END 2024-01-07 08:54 | disposition home or self-care (01) ==
PROVIDERS: PCP Nurse Practitioner Family; Visit Provider Nurse Practitioner Family
DX: Z12.31 Encounter for screening mammogram for malignant neoplasm of breast (principal); R92.323 Mammographic fibroglandular density, bilateral breasts; R92.1 Mammographic calcification found on diagnostic imaging of breast
CPT/HCPCS: 77063; 77067

== ENCOUNTER 2024-06-01 11:42 | Outpatient (CLI) | payer MEDICARE, BC, SELFPAY ==
--- NOTE | 2024-06-01 12:30 | USCV_ITS ---
Irina Frankel Age: 88 Gender: F : 1935 Exam Date: 06/01/2024 12:02 Ordering Phys: Holden Casiano MD ([email or web address]) Technologist: CT [place]am [place] [facility] [place]: BP: 168 / 88 HR: 71 Rhythm: Sinus Technical Quality: Adequate MEASUREMENTS (Male / Female) Normal Values 2D ECHO LVOT Diameter 2.1 cm LV Ejection Fraction MOD 4C 62.5 % LV Ejection Fraction MOD 2C 73.2 % LV Ejection Fraction 2C AL 74.5 % LA Diameter 4.2 cm RA Systolic Volume 4C AL 36.4 ml RA Systolic Volume 4C MOD 37.1 ml LA Sys Volume AL 72.0 cm cubed LA Sys Volume Index AL 42.1 cm cubed/m squared Aorta at Sinotubular Diameter 1.7 cm IVC Diameter 2.0 cm M-MODE LA Ao Ratio MM 1.3 AV Cusp Separation MM 1.5 cm DOPPLER AV Peak Velocity 239.0 cm/s LVOT Peak Velocity 121.0 cm/s AV Area Cont Eq vti 1.7 cm squared AV Area Cont Eq pk 1.7 cm squared MV Peak Velocity 143.0 cm/s MV Area PHT 3.3 cm squared Mitral E to A Ratio 1.2 TV Peak Velocity 314.0 cm/s TR Peak Velocity 327.5 cm/s TR Peak Gradient 42.9 mmHg TR Mean Velocity 260.0 cm/s TR Mean Gradient 30.4 mmHg TR Velocity Time Integral 108.7 cm TV Peak E Velocity 102.0 cm/s PV Peak Velocity 130.0 cm/s FINDINGS Left Ventricle Normal left ventricular size and systolic function, EF73%. No regional wall motion abnormalities. Mild left ventricular hypertrophy. Grade III/IV diastolic dysfunction (restrictive filling pattern), severely elevated filling pressures. Right Ventricle The right ventricle is normal in size and function. Right Atrium The right atrium is normal in size. Left Atrium Moderately increased left atrial size. Mitral Valve Moderate mitral annular calcification. Mild mitral valve regurgitation. Aortic Valve Thickened aortic valve. Mild aortic valve calcification. Mild aortic valve stenosis, mean gradient 13.9 mmHg, CHE 1.7 cm squared. Tricuspid Valve Mild tricuspid valve regurgitation. Estimated pulmonary artery peak systolic pressure 46 mmHg Pulmonic Valve No gross abnormalities noted Pericardium Normal pericardium without effusion. Aorta Normal ascending aorta dimension. IVC Normal inferior vena cava. CONCLUSIONS Normal left ventricular size and systolic function, EF73%. No regional wall motion abnormalities. Mild left ventricular hypertrophy. Grade III/IV diastolic dysfunction (restrictive filling pattern), severely elevated filling pressures. Moderately increased left atrial size. Thickened aortic valve. Mild aortic valve calcification. Mild aortic valve stenosis, mean gradient 13.9 mmHg, CHE 1.7 cm squared. Mild tricuspid valve regurgitation. Estimated pulmonary artery peak systolic pressure 46 mmHg. There is no pericardial effusion. There are no intracardiac masses. Compared to the study from 05/22/2023, there may not be significant change Dr Zahra Finch MD [facility] (Electronically Signed) Final Date: 02 June 2024 22:14 S
== END 2024-06-01 11:43 | disposition home or self-care (01) ==
PROVIDERS: PCP Nurse Practitioner Family; Visit Provider Internal Medicine Cardiovascular Disease
DX: I35.0 Nonrheumatic aortic (valve) stenosis (principal); I50.30 Unspecified diastolic (congestive) heart failure; I34.81 Nonrheumatic mitral (valve) annulus calcification; I51.7 Cardiomegaly
CPT/HCPCS: 93306

== ENCOUNTER → 2024-06-04 11:51 | Outpatient (BNVA) | payer MEDICARE, BC, SELFPAY | PROVIDERS: PCP Nurse Practitioner Family; Visit Provider Internal Medicine | DX: I11.0 Hypertensive heart disease with heart failure (principal); I50.30 Unspecified diastolic (congestive) heart failure; I35.0 Nonrheumatic aortic (valve) stenosis | CPT/HCPCS: 99214 ==

== ENCOUNTER 2025-03-22 08:56 | Outpatient (CLI) | payer MEDICARE, BC, SELFPAY ==
--- NOTE | 2025-03-22 09:06 | MM_ITS ---
WS: [id number] BILATERAL SCREENING DIGITAL TOMOSYNTHESIS MAMMOGRAM WITH CAD HISTORY: SCREENING COMPARISON: 01/07/2024, 08/07/2022, 05/29/2021 Bilateral CC and MLO views with tomosynthesis and synthetic mammography submitted. Computer aided detection analyzed. Breast composition: There are scattered areas of fibroglandular density. No suspicious masses, microcalcifications or architectural distortion. Benign calcifications in each breast. Well-circumscribed 6 x 7 mm mass in the upper outer quadrant LEFT breast is stable over multiple prior studies. MM/MM [facility] tomosynthesis [id number] IMPRESSION: BI-RADS: 2 - Benign. FOLLOW UP: 1 Year Follow-up
== END 2025-03-22 08:57 | disposition home or self-care (01) ==
LOC: RAD 09:01
PROVIDERS: PCP Nurse Practitioner Family; Visit Provider Nurse Practitioner Family
DX: Z12.31 Encounter for screening mammogram for malignant neoplasm of breast (principal); R92.323 Mammographic fibroglandular density, bilateral breasts; R92.1 Mammographic calcification found on diagnostic imaging of breast; N63.21 Unspecified lump in the left breast, upper outer quadrant
CPT/HCPCS: 77063; 77067

== ENCOUNTER 2025-06-07 14:47 | Outpatient (CLI) | payer MEDICARE, BC, SELFPAY ==
--- NOTE | 2025-06-07 15:00 | USCV_ITS ---
Irina Frankel Age: 89 Gender: F : 1935 Exam Date: 06/07/2025 15:07 Ordering Phys: Cas Rosario M.D ([email or web address]) Technologist: Exam Location: [facility] – [place] Indication: ao BP: 120 / 67 HR: 67 Rhythm: Sinus Technical Quality: Adequate MEASUREMENTS (Male / Female) Normal Values 2D ECHO LV Diastolic Diameter PLAX 3.9 cm 4.2 - 5.9 / 3.9 - 5.3 cm IVS Diastolic Thickness 1.2 cm 0.6 - 1.0 / 0.6 - 0.9 cm IVS Systolic Thickness 1.4 cm LVPW Diastolic Thickness 1.2 cm 0.6 - 1.0 / 0.6 - 0.9 cm LVPW Systolic Thickness 1.6 cm LVOT Diameter 1.9 cm LV Ejection Fraction 2D Teich 68.3 % LV Ejection Fraction MOD 4C 55.6 % LV Ejection Fraction MOD 2C 60.7 % LV Ejection Fraction 2C AL 61.0 % LA Diameter 3.9 cm RA Systolic Volume 4C AL 26.5 ml RA Systolic Volume 4C MOD 27.1 ml LA Sys Volume AL 61.6 cm cubed LA Sys Volume Index AL 36.3 cm cubed/m squared Aorta at Sinotubular Diameter 2.5 cm IVC Diameter 2.6 cm M-MODE LA Ao Ratio MM 1.4 AV Cusp Separation MM 0.9 cm DOPPLER AV Peak Velocity 235.0 cm/s LVOT Peak Velocity 116.0 cm/s AV Area Cont Eq vti 1.6 cm squared AV Area Cont Eq pk 1.4 cm squared MV Peak Velocity 172.0 cm/s TV Peak Velocity 274.5 cm/s TR Peak Velocity 296.0 cm/s TR Peak Gradient 35.0 mmHg TV Peak E Velocity 104.0 cm/s PV Peak Velocity 143.0 cm/s FINDINGS Left Ventricle Normal left ventricular size, systolic function and wall thickness, with no regional wall motion abnormalities. Left ventricular ejection fraction is estimated at 60 %. Grade II/IV diastolic dysfunction, moderately elevated filling pressures. Right Ventricle Normal right ventricular size and systolic function. Right Atrium Normal right atrial size. Left Atrium Moderately increased left atrial size. IA Septum Normal appearance of the interatrial septum. Mitral Valve Moderately thickened mitral valve. No mitral valve stenosis. Moderate mitral valve regurgitation. Aortic Valve Severe aortic valve calcification. Moderate aortic valve stenosis, mean gradient 9.6 mmHg, CHE 1.6 cm squared. Trace aortic valve regurgitation. Tricuspid Valve Thickened tricuspid valve. No tricuspid valve stenosis. Mild tricuspid valve regurgitation. Pulmonic Valve Normal pulmonic valve structure. No pulmonic valve stenosis or regurgitation. Pericardium No pericardial effusion. Aorta Normal diameter of the aortic root and ascending thoracic aorta. IVC Normal IVC diameter. CONCLUSIONS Normal left ventricular size, systolic function and wall thickness, with no regional wall motion abnormalities. Left ventricular ejection fraction is estimated at 60 %. Grade II/IV diastolic dysfunction, moderately elevated filling pressures. Severe aortic valve calcification. Moderate aortic valve stenosis, mean gradient 9.6 mmHg, CHE 1.6 cm squared. Trace aortic valve regurgitation. Severe aortic valve calcification. Moderate aortic valve stenosis, mean gradient 9.6 mmHg, CHE 1.6 cm squared. Trace aortic valve regurgitation. Moderately increased left atrial size. There is no pericardial effusion. Holden Casiano MD (Electronically Signed) Final Date: 14 June 2025 00:26 S
== END 2025-06-07 14:48 | disposition home or self-care (01) ==
LOC: RAD 14:49
PROVIDERS: PCP Nurse Practitioner Family; Visit Provider Internal Medicine
DX: I50.30 Unspecified diastolic (congestive) heart failure (principal); I10 Essential (primary) hypertension; I35.8 Other nonrheumatic aortic valve disorders; I35.0 Nonrheumatic aortic (valve) stenosis; I35.1 Nonrheumatic aortic (valve) insufficiency; I51.7 Cardiomegaly
CPT/HCPCS: 93306